=== PATIENT | male | born 1945 | race Caucasian/White ===

== ENCOUNTER → 2023-07-27 06:39 | Outpatient (REF) | payer OTHER, SELFPAY ==
[2023-07-27 09:58] LABS: Glycohemoglobin (HgbA1c) 8.3 % (4.0-5.6)
[2023-07-27 10:24] LABS: ALT (SGPT) 18 U/L (0-50); Blood Urea Nitrogen 20 mg/dl (9-20); Calcium 9.3 mg/dl (8.4-10.2); Carbon Dioxide 29 mmol/L (22-30); Chloride 100 mmol/L (98-107); Glucose 142 mg/dl (70-99); HDL Cholesterol 42 mg/dl; LDL Cholesterol, Calculated 101 mg/dl; Potassium 4.1 mmol/L (3.5-5.1); Sodium 137 mmol/L (135-145); Total Cholesterol 175 mg/dl (50-199); Triglyceride 160 mg/dl (10-149); Very Low Density Lipoprotein 32 mg/dl (0-30); eGFR > 60.00
[2023-07-27 11:13] LABS: Microalbumin, Random Urine 0.6 mg/dl (0.6-1.7); Microalbumin/creatinine Ratio 8.6 mg/g
== END ==
LOC: HWLAB 06:39
PROVIDERS: ATTENDING PHYSICIAN Internal Medicine Cardiovascular Disease; FAMILY PHYSICIAN Family Medicine
DX: E11.65 Type 2 diabetes mellitus with hyperglycemia (principal); Z79.4 Long term (current) use of insulin; E78.5 Hyperlipidemia, unspecified
CPT/HCPCS: 36415; 80048; 80061; 82043; 82570; 83036; 84460

== ENCOUNTER → 2023-11-02 07:05 | Outpatient (REF) | payer OTHER, SELFPAY | LOC: RCS 07:05 | PROVIDERS: ATTENDING PHYSICIAN Internal Medicine Cardiovascular Disease; FAMILY PHYSICIAN Family Medicine | DX: I10 Essential (primary) hypertension (principal) | CPT/HCPCS: 93306 ==

== ENCOUNTER → 2023-11-16 06:43 | Outpatient (REF) | payer OTHER, SELFPAY ==
[2023-11-16 09:49] LABS: ALT (SGPT) 24 U/L (0-50); Blood Urea Nitrogen 22 mg/dl (9-20); Calcium 9.4 mg/dl (8.4-10.2); Carbon Dioxide 24 mmol/L (22-30); Chloride 104 mmol/L (98-107); Glucose 169 mg/dl (70-99); Potassium 4.1 mmol/L (3.5-5.1); Sodium 139 mmol/L (135-145); eGFR > 60.00
[2023-11-16 14:35] LABS: Glycohemoglobin (HgbA1c) 7.9 % (4.0-5.6)
== END ==
LOC: HWLAB 06:43
PROVIDERS: ATTENDING PHYSICIAN Internal Medicine Cardiovascular Disease; FAMILY PHYSICIAN Family Medicine
DX: E11.65 Type 2 diabetes mellitus with hyperglycemia (principal); Z79.4 Long term (current) use of insulin
CPT/HCPCS: 36415; 80048; 83036; 84460

== ENCOUNTER → 2024-02-17 06:18 | Outpatient (REF) | payer OTHER, SELFPAY ==
[2024-02-17 10:06] LABS: % Basophils 0.8 % (0-2); % Eosinophils 4.2 % (0-6); % Immature Granulocytes 1.2 % (0-0.5); % Lymphocytes 23.7 % (20.5-51.1); % Monocytes 8.2 % (1.7-9.3); % Neutrophils 61.9 % (42.2-75.2); Absolute Basophils 0.1 10^3/uL (0-0.2); Absolute Eosinophils 0.3 10^3/uL (0-0.7); Absolute Immature Granulocytes 0.1 10^3/uL (0-0.05); Absolute Lymphocytes 1.4 10^3/uL (1.2-3.4); Absolute Monocytes 0.5 10^3/uL (0.1-0.6); Absolute Neutrophils 3.7 10^3/uL (1.4-6.5); Hematocrit 42.2 % (39.0-52.0); Mean Corp Hgb Conc. 33.2 g/dL (33.0-37.0); Mean Corpuscular Hgb 27.9 pg (27.0-31.0); Mean Corpuscular Volume 84.1 fL (80.0-94.0); Mean Platelet Volume 8.6 fL (7.4-10.4); Nucleated Red Blood Cells % 0 % (-); Platelet Count 275 10^3/uL (130-400); Red Blood Cell Count 5.02 10^6/uL (4.70-6.10); Red Cell Dist. Width 14.7 % (11.5-14.5)
[2024-02-17 10:33] LABS: ALT (SGPT) 21 U/L (0-50); AST (SGOT) 21 U/L (17-59); Albumin 3.9 g/dl (3.5-5.0); Alkaline Phosphatase 109 U/L (38-126); Blood Urea Nitrogen 18 mg/dl (9-20); Calcium 8.7 mg/dl (8.4-10.2); Carbon Dioxide 22 mmol/L (22-30); Chloride 103 mmol/L (98-107); Glucose 234 mg/dl (70-99); HDL Cholesterol 33 mg/dl; LDL Cholesterol, Calculated 91 mg/dl; Potassium 4.3 mmol/L (3.5-5.1); Sodium 139 mmol/L (135-145); Total Bilirubin 0.5 mg/dl (0.2-1.3); Total Cholesterol 164 mg/dl (50-199); Total Protein 6.1 g/dl (6.3-8.2); Triglyceride 204 mg/dl (10-149); Very Low Density Lipoprotein 40 mg/dl (0-30); eGFR > 60.00
[2024-02-17 10:38] LABS: Glycohemoglobin (HgbA1c) 8.9 % (4.0-5.6)
[2024-02-17 10:58] LABS: TSH Reflex To Free T4 1.01 uIU/ml (0.47-4.68)
[2024-02-17 11:18] LABS: Vitamin B12 313 pg/ml (239-931)
== END ==
LOC: HWLAB 06:18
PROVIDERS: ATTENDING PHYSICIAN Family Medicine
DX: R53.83 Other fatigue (principal); G62.9 Polyneuropathy, unspecified; E11.42 Type 2 diabetes mellitus with diabetic polyneuropathy; I25.10 Atherosclerotic heart disease of native coronary artery without angina pectoris; Z79.4 Long term (current) use of insulin; Z85.46 Personal history of malignant neoplasm of prostate; I10 Essential (primary) hypertension
CPT/HCPCS: 36415; 80053; 80061; 82607; 83036; 84443; 85025; 86618

== ENCOUNTER 2024-02-24 14:28 | Emergency (ER) | payer OTHER, SELFPAY ==
[2024-02-24 14:29] VITALS: BP 161/73
--- NOTE | 2024-02-24 15:20 | ED.GENMED ---
History of Present Illness
General
Chief Complaint: Fall
Time Seen by Provider: 02/24/24 15:07
History of Present Illness
History of Present Illness:
Patient is a 79-year-old man with history of diabetes, hypertension, hyperlipidemia presenting to the emergency department after a fall. Patient states that he got tangled up in the dog fluids when he fell onto his hands and knees. He did hit his
forehead. He did not lose consciousness. He is having a slight headache, right sided rib pain and left-sided knee pain. Patient states that he was able to ambulate after the fall. He did take aspirin however the pain did not resolve so he came
to the emergency department. Currently he states that the most pain is at his ribs. He did washout the knee and put antibiotic cream on it. No numbness tingling. No weakness. He is not on any blood thinners.
Past History
Past History
ED Past Medical History: CAD, CVA, HTN, IDDM, Valvular disease and Other ( prostate cancer, asthma)
ED Past Surgical History: Cardiac (Coronary stenting 2003, 2011 [facility], CABG)
Social History
Tobacco: Former smoker
Alcohol: None
Drug: None
Personal:
Living: with family
Phy Exam
Physical Exam
Physical Exam:
GENERAL: no acute distress
HEENT: atraumatic, extraocular muscles intact, no signs of entrapment, dentition intact, no other obvious trauma
NECK: no midline tenderness, normal range of motion, NEXUS criteria negative, no other obvious trauma
BACK: no midline tenderness, no other obvious trauma
CHEST: Right-sided chest wall tenderness, no flail segment, no subcutaneous emphysema, no other obvious trauma
LUNGS: clear to auscultation bilaterally
CARDIOVASCULAR: regular rate and rhythm
ABDOMEN: soft, non-tender, no masses, no other obvious trauma
PELVIS: stable, no obvious injury
EXTREMITIES: moving all extremities, distal pulses intact, left knee with small abrasion with bleeding controlled
NEUROLOGIC: awake, alert x 3, no focal deficits
Course
Orders/Labs/Results
Orders:
Orders
02/24/24 14:33
CT Head W/o Iv Contrast Urgent
Comment:
Reason For Exam: head injury
02/24/24 15:18
CT Cervical Spine W/o Iv Contr Urgent
Comment:
Reason For Exam: fall
CT Chest W/o Iv Contrast Urgent
Comment:
Reason For Exam: rib pain, fall
02/24/24 15:20
Tetanus/Diphth/Acelpertussis [Adacel] 0.5 ml IM .ONCE ONE
CR Knee - Left 4 Or More View* Urgent
Comment:
Reason For Exam: fall, knee pain
02/24/24 15:25
Acetaminophen [Tylenol] 1,000 mg PO NOW STA
02/24/24 16:04
Oxycodone [Roxicodone] 5 mg PO NOW STA
Vital Signs
Initial and Last Documented VS:
Initial Vital Signs
Temp Pulse Resp BP Pulse Ox
97.8 F 80 16 161/73 99
02/24/24 14:29 02/24/24 14:29 02/24/24 14:29 02/24/24 14:29 02/24/24 14:29
Last Documented Vital Signs
Temp Pulse Resp BP Pulse Ox
97.8 F 67 16 135/72 94
02/24/24 14:29 02/24/24 18:01 02/24/24 18:01 02/24/24 18:01 02/24/24 18:01
MDM/Problems Addressed
Differential Diagnosis Includes:
Patient is a 79-year-old man presenting to the emergency department after a mechanical fall. Vitals are unremarkable and exam does show right-sided chest wall tenderness and abrasion over the left knee. He does have full range of motion and
strength. Given the headache as well I am concerned about traumatic intracranial injury. Concern for rib fracture as well as knee fracture. Will obtain CT head C-spine and chest. Will pain control.
*Critical Care Note
Total Time (30-74mins, 75-104mins- exclusive of procedures): Not Applicable
Update Note
Update Note:
On reevaluation patient's does state that the pain has slightly improved. I did offer opioids however patient would prefer to stay away from at the time. He is ambulatory. CT scan of the head per my interpretation without any obvious hemorrhage.
Remaining CT scan negative. We did discuss staying away from lidocaine patch given his allergy. Educated on using Voltaren gel with Tylenol and oxycodone for breakthrough pain. Will discharge at this time
ED Attending Note
-
Portions of this chart may have been created with voice recognition software.� Occasional wrong word or��sound alike� substitutions may have occurred due to the inherent limitations of voice recognition software.
Discharge Plan
Departure
Patient Disposition: Home (Routine Discharge)
Date of Disposition: 02/24/24
Time of Disposition: 18:25
Patient with high blood pressure during this ER visit?: Yes
Discharge Problem:
Fall, Contusion of rib
Instructions: Wound Care (DC), Preventing falls in adults
Prescriptions:
New
oxycodone 5 mg tablet
2.5 mg PO Q8H PRN (Reason: Pain) Qty: 7 0RF
No Action
Amlodipine
10 mg PO DAILY
Patient Comments:
pt thinks it has diuretic in it
metformin 500 MG tablet
1,000 mg PO BID
aspirin 81 MG tablet,chewable
325 mg PO DAILY
benzonatate 100 MG capsule
100 mg PO TIDPRN PRN (Reason: cough) Qty: 30 0RF
atorvastatin 40 MG tablet
20 mg PO QPM
Toujeo Solostar
90 units SC .MORNING
Jardiance
20 mg PO DAILY
bisoprolol fumarate 10 mg Tablet
10 mg PO BID
Toujeo SoloStar U-300 Insulin 300 unit/mL (1.5 mL) Insulin Pen
30 unit SC HS
valsartan
180 mg PO BID
A New Bp Med ? Name
1 tab PO DAILY
Patient Comments:
? name- started 09/17/22
cephalexin 500 mg capsule
500 mg PO QID 7 Days Qty: 28 0RF
Referrals:
Pauile Osei MD [Family Provider] -
Activity Restrictions/Additional Instructions:
You were seen in the Emergency Department today for a fall. While you were here we performed CT scan, which was reassuring. Please use the Voltaren gel as we discussed. You may take oxycodone for breakthrough pain every 8 hours as needed.
We would like for you to follow up with your primary care physician for further evaluation. If you experience fever, worsening of your symptoms, or develop any other new or concerning symptoms, please return to the Emergency Department immediately.
Please see the attached sheet for additional information.
Interventions
Interventions:
*Risk Screen - Suicide Last Done: 02/24/24 14:32
*General Assessment Last Done: 02/24/24 17:04
*Neglect/Abuse Screening Last Done: 02/24/24 14:32
ED- Fall Risk Assessment Last Done: 02/24/24 17:05
*ED COVID-19 Vaccine History Last Done: 02/24/24 17:04
ED-Musculoskeletal Assessment Last Done: 02/24/24 15:40
ED- Neurological Assessment Last Done: 02/24/24 15:40
ED-Skin Assessment Last Done: 02/24/24 15:40
Discharge Date and Time
Print Language: INDONESIAN
[2024-02-24] MEDS: TYLENOL 1000 MG PO (15:47)
[2024-02-24] MEDS: ADACEL 0.5 ML IM (15:49)
[2024-02-24] MEDS: ROXICODONE 5 MG PO (16:11)
[2024-02-24 18:01] VITALS: BP 135/72
[2024-02-24 18:38] VITALS: BP 134/76
== END 2024-02-24 18:39 | disposition home or self-care (01) ==
LOC: EMR 14:28
PROVIDERS: EMERGENCY PHYSICIAN Student in an Organized Health Care Education/Training Program; FAMILY PHYSICIAN Family Medicine
DX: S20.219A Contusion of unspecified front wall of thorax, initial encounter (principal); W19.XXXA Unspecified fall, initial encounter; E11.9 Type 2 diabetes mellitus without complications; I10 Essential (primary) hypertension; I25.10 Atherosclerotic heart disease of native coronary artery without angina pectoris; J45.909 Unspecified asthma, uncomplicated; E78.00 Pure hypercholesterolemia, unspecified; Z85.46 Personal history of malignant neoplasm of prostate; Z86.73 Personal history of transient ischemic attack (TIA), and cerebral infarction without residual deficits; Z87.891 Personal history of nicotine dependence; Z95.1 Presence of aortocoronary bypass graft; Z95.5 Presence of coronary angioplasty implant and graft
CPT/HCPCS: 99284; 90471; 70450; 71250; 72125; 73564; 90715

== ENCOUNTER 2024-03-02 16:07 | Emergency (ER) | payer OTHER, SELFPAY ==
[2024-03-02 16:17] VITALS: BP 169/70
[2024-03-02 17:28] VITALS: BMI 28.3
--- NOTE | 2024-03-02 17:40 | ED.GENMED ---
History of Present Illness
General
Chief Complaint: Musculo-Skeletal Complaint
Source: patient
Exam Limitations: none
Time Seen by Provider: 03/02/24 17:39
Nursing documentation reviewed up to this point in time: agreed with
History of Present Illness
History of Present Illness:
This is a 79 y/o male with a H stroke, coronary artery disease, diabetes presents emergency department today with concerns of right rib pain. Patient states that around a week ago, he fell. States that he got tangled up with his dog which caused
him to fall. Patient states that he has pain with inspiration. Patient states that he is try [id number] lidocaine patches and Tylenol without relief. Patient states that he has tramadol which he will occasionally use for his chronic back
pain and states that that did help relieve some pain. Patient was seen here in our emergency department around the time of the fall around a week ago. States that he had CAT scans done which did not show any evidence of injury. Patient concerned
as pain persist. Patient denies any shortness of breath, any chest pain. Patient denies any syncopal episodes.
Past History
Past History
ED Past Medical History: CAD, CVA, HTN, IDDM, Valvular disease and Other ( prostate cancer, asthma)
ED Past Surgical History: Cardiac (Coronary stenting 2003, 2011 [facility], CABG)
Social History
Tobacco: Former smoker
Alcohol: None
Drug: None
Personal:
Living: with family
Review of Systems
Review of Systems
All Other Systems: ROS reviewed and negative except as documented in HPI and ROS
Phy Exam
Physical Exam
Physical Exam:
General: Patient is well appearing and in no acute distress; non-toxic
Skin: Warm and dry, no rashes or lesions
Head: Normocephalic, atraumatic
Eyes: Sclera non-icteric. EOMs intact. PERRLA.
Cardiac: Regular rate and rhythm, no murmurs, no tenderness palpation of the anterior chest wall. Tenderness palpation over the right lateral to posterior chest wall with no overlying swelling or ecchymosis, no crepitus
Pulm: Normal respiratory effort, no wheezes, rales, rhonchi
Neuro: CN II-XII intact, no focal neurologic deficits.
Psychiatric: Appropriate mood and affect.
Course
Orders/Labs/Results
Orders:
Orders
03/02/24 16:31
CR Ribs-right 3 Vw W/pa Chest* Urgent
Reason For Exam: pain
03/02/24 17:59
Incentive Spirometry [Rx Incentive Spirometry] [RESP] Urgent
Frequency: q1h while awake
Vital Signs
Initial and Last Documented VS:
Initial Vital Signs
Temp Pulse Resp BP Pulse Ox
98.3 F 78 22 169/70 95
03/02/24 16:17 03/02/24 16:17 03/02/24 16:17 03/02/24 16:17 03/02/24 16:17
Last Documented Vital Signs
Temp Pulse Resp BP Pulse Ox
98.3 F 78 22 169/70 95
03/02/24 16:17 03/02/24 16:17 03/02/24 16:17 03/02/24 16:17 03/02/24 16:17
MDM/Problems Addressed
Differential Diagnosis Includes:
Differentials include rib contusion, musculoskeletal sprain/strain, rib fracture
MDM/Problems Addressed:
79-year-old male presents emergency department with persistent chest wall pain following a fall. He had a CAT scan of his chest done on February 24, 2024 which was negative for any acute fracture or dislocation, showed no pneumothorax. Patient
subsequently was seen here today for persistent pain. On exam, he is well-appearing he does have tenderness over the right chest wall with no overlying ecchymosis or crepitus. Patient's lungs are clear to auscultation bilaterally and there are
equal. Patient's heart is regular rate and rhythm. He had an x-ray done today of the chest and ribs which revealed a subtle deformity of the anterior lateral right seventh rib with subtle vertical lucency which may be suggestive of a subtle
fracture. Did suggest findings with patient. Patient states that he has not had adequate pain control at home. Patient was given a prescription for oxycodone during his last visit but patient states that he has adverse reactions to oxycodone and
he is not taken this. Patient states that he finds relief with tramadol and is requesting some more tablets to take at home. I think this is reasonable considering patient is tolerated this well in the past. I sent a few tablets to his pharmacy.
Also discussed maximizing other medications such as Tylenol and ibuprofen before using this, did send prescription lidocaine patches to his pharmacy. Discussed follow-up with orthopedics should he have persistent symptoms. Patient expressed
understanding. Patient stable for discharge.
Chronic conditions affecting care:
Hypertension, hyperlipidemia, coronary artery disease
*Pulse Oximetry
Patient hypoxic: no
*Critical Care Note
Total Time (30-74mins, 75-104mins- exclusive of procedures): Not Applicable
Data Reviewed
Review of Other/Old Records Reveals: Records (Reviewed ER physician documentation from 02/24/2024, reviewed previous CAT scan reads of the chest)
Source: patient and records
Patient Management
Escalation/DeEscalation of care consider admission/obs:
admit not indicated, case reviewed with Dr. Tao
ED Attending Note
-
Portions of this chart may have been created with voice recognition software.� Occasional wrong word or��sound alike� substitutions may have occurred due to the inherent limitations of voice recognition software.
Discharge Plan
Departure
Patient Disposition: Home (Routine Discharge)
Date of Disposition: 03/02/24
Time of Disposition: 18:18
Patient with high blood pressure during this ER visit?: Yes
Condition: Good
Discharge Problem:
Right rib fracture
Instructions: Ibuprofen, Rib Fracture or Bruised Rib ED
Prescriptions:
New
tramadol 50 mg tablet
50 mg PO BID PRN (Reason: Pain) Qty: 5 0RF
lidocaine 5 % adhesive patch,medicated
1 patch topical DAILY Qty: 15 0RF
No Action
Amlodipine
10 mg PO DAILY
Patient Comments:
pt thinks it has diuretic in it
metformin 500 MG tablet
1,000 mg PO BID
aspirin 81 MG tablet,chewable
325 mg PO DAILY
benzonatate 100 MG capsule
100 mg PO TIDPRN PRN (Reason: cough) Qty: 30 0RF
atorvastatin 40 MG tablet
20 mg PO QPM
Toujeo Solostar
90 units SC .MORNING
Jardiance
20 mg PO DAILY
bisoprolol fumarate 10 mg Tablet
10 mg PO BID
insulin glargine U-300 conc [Toujeo SoloStar U-300 Insulin] 300 unit/mL (1.5 mL) Insulin Pen
30 unit SC HS
valsartan
180 mg PO BID
A New Bp Med ? Name
1 tab PO DAILY
Patient Comments:
? name- started 09/17/22
Referrals:
Luis F Moreno MD [Active] - Call in 1-3 days for appt
Activity Restrictions/Additional Instructions:
Please use your incentive spirometer, you can use it around 8 times per hour while at home. You can do this for the next few days.
Tramadol has been sent to your pharmacy. You can take 1 tablet every 12 hours as needed for rib pain. PLEASE DO NOT USE OXYCODONE WHILE USING THIS MEDICATION. Please take miralax supplement once daily.
Lidocaine patches have been sent to your pharmacy. You can apply 1 patch over the affected area once daily. Please remove after 12 hours.
Please schedule a follow up appointment with your PCP in one week.
Interventions
Interventions:
*Risk Screen - Suicide Last Done: 03/02/24 16:17
*General Assessment Last Done: 03/02/24 16:17
*Neglect/Abuse Screening Last Done: 03/02/24 16:17
ED- Fall Risk Assessment Last Done: 03/02/24 17:28
*ED COVID-19 Vaccine History Last Done: 03/02/24 17:28
*Nursing Disposition Last Done: 03/02/24 18:40
ED-Musculoskeletal Assessment Last Done: 03/02/24 17:28
Discharge Date and Time
Discharge Date/Time: 03/02/24 19:01
Print Language: PERUVIAN
== END 2024-03-02 19:01 | disposition home or self-care (01) ==
LOC: EMR 16:07
PROVIDERS: EMERGENCY PHYSICIAN Student in an Organized Health Care Education/Training Program; FAMILY PHYSICIAN Family Medicine
DX: S22.31XA Fracture of one rib, right side, initial encounter for closed fracture (principal); W19.XXXA Unspecified fall, initial encounter; I25.10 Atherosclerotic heart disease of native coronary artery without angina pectoris; E11.9 Type 2 diabetes mellitus without complications; I10 Essential (primary) hypertension; J45.909 Unspecified asthma, uncomplicated; E78.5 Hyperlipidemia, unspecified; G89.29 Other chronic pain; Z79.4 Long term (current) use of insulin; Z79.82 Long term (current) use of aspirin; Z95.1 Presence of aortocoronary bypass graft; Z95.5 Presence of coronary angioplasty implant and graft; Z85.46 Personal history of malignant neoplasm of prostate; Z86.73 Personal history of transient ischemic attack (TIA), and cerebral infarction without residual deficits; Z87.891 Personal history of nicotine dependence; Z88.4 Allergy status to anesthetic agent; Z88.8 Allergy status to other drugs, medicaments and biological substances
CPT/HCPCS: 99283; 71101

== ENCOUNTER 2024-03-30 08:44 | Emergency (ER) | payer OTHER, SELFPAY ==
[2024-03-30 08:46] VITALS: BP 178/88
--- NOTE | 2024-03-30 09:28 | ED.MUSCINJ ---
HPI-Injury
General
Chief Complaint: Musculo-Skeletal Complaint
Source: patient
Exam Limitations: none
Time Seen by Provider: 03/30/24 09:06
History of Present Illness-Injury
Initial Injury comments:
79-year-old male presents after a fall trying to get over his dog gate yesterday. He fell onto his left side. He complains of pain to the left clavicle area and neck. He does not recall hitting his head. He is not anticoagulated. He has a
history of diabetes. No arm pain. No ALTE breathing. No loss of consciousness at the time of the fall. No other
Past History
Past History
ED Past Medical History: CAD, CVA, HTN, IDDM, Valvular disease and Other ( prostate cancer, asthma)
ED Past Surgical History: Cardiac (Coronary stenting 2003, 2011 [facility], CABG)
Social History
Tobacco: Former smoker
Alcohol: None
Drug: None
Personal:
Living: with family
Phy Exam
Physical Exam
Physical Exam:
General: Well-appearing male no respiratory distress
HEENT: Normocephalic no obvious trauma
Heart: Regular rate and rhythm
Lungs: Clear breath sounds heard throughout
Musculoskeletal exam: The patient is tender over the proximal to mid clavicle area as well as midline of the cervical spine.
Ext: NO cyanosis or edema
Injury Course
Orders/Labs/Results
Orders:
Orders
03/30/24 08:50
Clavicle Complete, Left CR [CR Clavicle - Left Complete ] Urgent
Comment:
Reason For Exam: injury
03/30/24 09:15
CT Cervical Spine W/o Iv Contr Urgent
Comment:
Reason For Exam: fall, neck pain
CT Head W/o Iv Contrast Urgent
Comment:
Reason For Exam: fall
Tramadol HCl [Ultram] 50 mg PO NOW STA
MDM/Problems Addressed
Differential Diagnosis Includes:
Fall left clavicular and neck pain. Consider clavicle fracture or cervical strain versus cervical fracture. X-rays of the clavicle ordered through triage which were negative for acute finding. Given the tenderness over the midline cervical spine
CT of head and cervical spine ordered as well
*Critical Care Note
Total Time (30-74mins, 75-104mins- exclusive of procedures): Not Applicable
Update Note
Update Note:
CT of head and cervical spine were ordered and are negative for acute traumatic injury. Suspect underlying muscular strain. [id number] medications are not helping. Will prescribe tramadol for short course for his pain. Recommended warm
compresses. Stable for discharge
ED Attending Note
-
Portions of this chart may have been created with voice recognition software.� Occasional wrong word or��sound alike� substitutions may have occurred due to the inherent limitations of voice recognition software.
Discharge Plan
Departure
Patient Disposition: Home (Routine Discharge)
Date of Disposition: 03/30/24
Time of Disposition: 10:52
Patient with high blood pressure during this ER visit?: No
Discharge Problem:
Cervical strain
Instructions: Muscle and Bone Pain (DC)
Prescriptions:
New
tramadol 50 mg tablet
50 mg PO Q8H PRN (Reason: Pain) Qty: 10 0RF
No Action
Amlodipine
10 mg PO DAILY
Patient Comments:
pt thinks it has diuretic in it
metformin 500 MG tablet
1,000 mg PO BID
aspirin 81 MG tablet,chewable
325 mg PO DAILY
benzonatate 100 MG capsule
100 mg PO TIDPRN PRN (Reason: cough) Qty: 30 0RF
atorvastatin 40 MG tablet
20 mg PO QPM
Toujeo Solostar
90 units SC .MORNING
Jardiance
20 mg PO DAILY
bisoprolol fumarate 10 mg Tablet
10 mg PO BID
insulin glargine U-300 conc [Toujeo SoloStar U-300 Insulin] 300 unit/mL (1.5 mL) Insulin Pen
30 unit SC HS
valsartan
180 mg PO BID
A New Bp Med ? Name
1 tab PO DAILY
Patient Comments:
? name- started 09/17/22
tramadol 50 mg tablet
50 mg PO BID PRN (Reason: Pain) Qty: 5 0RF
lidocaine 5 % adhesive patch,medicated
1 patch topical DAILY Qty: 15 0RF
Referrals:
Paulie Osei MD [Family Provider] -
Activity Restrictions/Additional Instructions:
Rest. Use warm compresses to the area. Return here for worsening symptoms otherwise follow-up with your doctor
Interventions
Interventions:
*Risk Screen - Suicide Last Done: 03/30/24 08:46
*General Assessment Last Done: 03/30/24 08:46
*Neglect/Abuse Screening Last Done: 03/30/24 08:46
*ED COVID-19 Vaccine History Last Done: 03/30/24 09:57
ED-Musculoskeletal Assessment Last Done: 03/30/24 10:20
Discharge Date and Time
Print Language: CZECH
[2024-03-30] MEDS: ULTRAM 50 MG PO (10:18)
[2024-03-30 11:45] VITALS: BP 177/81
== END 2024-03-30 11:45 | disposition home or self-care (01) ==
LOC: EMR 08:44
PROVIDERS: EMERGENCY PHYSICIAN Emergency Medicine; FAMILY PHYSICIAN Family Medicine
DX: S16.1XXA Strain of muscle, fascia and tendon at neck level, initial encounter (principal); W19.XXXA Unspecified fall, initial encounter; I25.10 Atherosclerotic heart disease of native coronary artery without angina pectoris; Z86.73 Personal history of transient ischemic attack (TIA), and cerebral infarction without residual deficits; I10 Essential (primary) hypertension; E11.9 Type 2 diabetes mellitus without complications; J45.909 Unspecified asthma, uncomplicated; Z95.1 Presence of aortocoronary bypass graft; Z87.891 Personal history of nicotine dependence; Z85.46 Personal history of malignant neoplasm of prostate; Z79.4 Long term (current) use of insulin; Z95.5 Presence of coronary angioplasty implant and graft
CPT/HCPCS: 99284; 70450; 72125; 73000

== ENCOUNTER → 2024-07-10 14:19 | Outpatient (REF) | payer OTHER, SELFPAY | LOC: REG 14:19 | PROVIDERS: ATTENDING PHYSICIAN Psychiatry & Neurology Neurology; FAMILY PHYSICIAN Family Medicine | DX: H02.403 Unspecified ptosis of bilateral eyelids (principal) | CPT/HCPCS: 36415; 86041 ==

== ENCOUNTER → 2024-08-06 11:04 | Outpatient (REF) | payer OTHER, SELFPAY ==
[2024-08-06 16:08] LABS: HDL Cholesterol 30 mg/dl; LDL Cholesterol, Calculated 148 mg/dl; Total Cholesterol 220 mg/dl (50-199); Triglyceride 214 mg/dl (10-149); Very Low Density Lipoprotein 42 mg/dl (0-30)
== END ==
LOC: HWLAB 11:04
PROVIDERS: ATTENDING PHYSICIAN Internal Medicine Cardiovascular Disease; FAMILY PHYSICIAN Family Medicine
DX: I10 Essential (primary) hypertension (principal)
CPT/HCPCS: 36415; 80061

== ENCOUNTER → 2024-08-07 14:21 | Outpatient (REF) | payer OTHER, SELFPAY | LOC: PAVMRI 14:21 | PROVIDERS: ATTENDING PHYSICIAN Physician Assistant Surgical; FAMILY PHYSICIAN Family Medicine | DX: M25.551 Pain in right hip (principal); M25.552 Pain in left hip | CPT/HCPCS: 73721 ==

== ENCOUNTER → 2024-08-30 07:54 | Outpatient (REF) | payer OTHER, SELFPAY | LOC: RAD 07:54 | PROVIDERS: ATTENDING PHYSICIAN Physician Assistant Surgical; FAMILY PHYSICIAN Family Medicine; REFERRING PHYSICIAN Internal Medicine Cardiovascular Disease | DX: G62.89 Other specified polyneuropathies (principal); M25.511 Pain in right shoulder; M25.552 Pain in left hip; R20.0 Anesthesia of skin; Z86.73 Personal history of transient ischemic attack (TIA), and cerebral infarction without residual deficits | CPT/HCPCS: 93880; 95886; 95911 ==

== ENCOUNTER → 2024-11-19 06:39 | Outpatient (REF) | payer OTHER, SELFPAY ==
[2024-11-19 08:34] LABS: Microalbumin, Random Urine 1.1 mg/dl (0.6-1.7)
[2024-11-19 08:43] LABS: Microalbumin/creatinine Ratio 25.9 mg/g
[2024-11-19 08:49] LABS: Glycohemoglobin (HgbA1c) 10.3 % (4.0-5.6)
[2024-11-19 09:09] LABS: Blood Urea Nitrogen 15 mg/dl (9-20); Calcium 9.1 mg/dl (8.4-10.2); Carbon Dioxide 28 mmol/L (22-30); Chloride 102 mmol/L (98-107); Glucose 222 mg/dl (70-99); HDL Cholesterol 38 mg/dl; LDL Cholesterol, Calculated 107 mg/dl; Potassium 3.9 mmol/L (3.5-5.1); Sodium 139 mmol/L (135-145); Total Cholesterol 194 mg/dl (50-199); Triglyceride 245 mg/dl (10-149); Very Low Density Lipoprotein 49 mg/dl (0-30); eGFR > 60.00
== END ==
LOC: REG 06:39
PROVIDERS: FAMILY PHYSICIAN Family Medicine
DX: E11.65 Type 2 diabetes mellitus with hyperglycemia (principal)
CPT/HCPCS: 36415; 80048; 80061; 82043; 82570; 83036

== ENCOUNTER → 2024-11-19 07:37 | Outpatient (REF) | payer OTHER, SELFPAY | LOC: MRI 3T 07:37 | PROVIDERS: ATTENDING PHYSICIAN Physician Assistant; FAMILY PHYSICIAN Family Medicine | DX: M54.16 Radiculopathy, lumbar region (principal) | CPT/HCPCS: 72148 ==

== ENCOUNTER → 2025-01-29 11:28 | Outpatient (REF) | payer OTHER, SELFPAY ==
[2025-01-29 16:19] LABS: ALT (SGPT) 24 U/L (0-50); AST (SGOT) 21 U/L (17-59); Albumin 4.2 g/dl (3.5-5.0); Alkaline Phosphatase 130 U/L (38-126); Blood Urea Nitrogen 12 mg/dl (9-20); Calcium 8.8 mg/dl (8.4-10.2); Carbon Dioxide 30 mmol/L (22-30); Chloride 101 mmol/L (98-107); Glucose 338 mg/dl (70-99); Potassium 3.8 mmol/L (3.5-5.1); Sodium 136 mmol/L (135-145); Total Protein 6.4 g/dl (6.3-8.2); eGFR > 60.00
[2025-01-30 09:25] LABS: Glycohemoglobin (HgbA1c) 10.0 % (4.0-5.6)
== END ==
LOC: HWLAB 11:28
PROVIDERS: ATTENDING PHYSICIAN Nurse Practitioner Family; FAMILY PHYSICIAN Family Medicine
DX: E11.65 Type 2 diabetes mellitus with hyperglycemia (principal)
CPT/HCPCS: 36415; 80053; 83036

== ENCOUNTER → 2025-03-19 07:18 | Outpatient (REF) | payer OTHER, SELFPAY | LOC: HWRCS 07:18 | PROVIDERS: ATTENDING PHYSICIAN Internal Medicine Cardiovascular Disease; FAMILY PHYSICIAN Family Medicine | DX: Z01.818 Encounter for other preprocedural examination (principal); I35.0 Nonrheumatic aortic (valve) stenosis; R06.09 Other forms of dyspnea | CPT/HCPCS: 78452; 93017; A9500; J2785 ==

== ENCOUNTER → 2025-03-20 11:17 | Outpatient (REF) | payer OTHER, SELFPAY | LOC: HWRCS 11:17 | PROVIDERS: ATTENDING PHYSICIAN Internal Medicine Cardiovascular Disease; FAMILY PHYSICIAN Family Medicine | DX: Z01.818 Encounter for other preprocedural examination (principal); I35.0 Nonrheumatic aortic (valve) stenosis; R06.09 Other forms of dyspnea | CPT/HCPCS: 93306 ==